=== PATIENT | female | born 1970 | race African-American/Black ===

== ENCOUNTER 2017-09-21 09:18 | Emergency (ER) | payer SELFPAY ==
[~2017-09-21] VITALS: Ht 162.6 cm; Wt 79.2 kg
[2017-09-21 09:26] VITALS: BP 129/89
--- NOTE | 2017-09-21 09:38 | NUR ---
PT AMBULATED TO [facility]
[2017-09-21 09:48] VITALS: BP 129/89
--- NOTE | 2017-09-21 09:51 | NUR ---
PT COMES TO ED C/O CP 12/12 WITH NAUSEA SINCE 8AM THIS MORNING. EKG COMPLETE AND SIGNED OFF BY MD DINH, PT DENEIS VOMITTING, SOB OR DIZZINESS. NAD NOTED/STATED OTHERWISE. PT PLACED ON PORTABLE MONIOTR, VS WNL. PT TO BE MOVED TO BED WHEN COMES AVAILABLE.
--- NOTE | 2017-09-21 10:35 | NUR ---
Xin nagy in [facility] - 09/21/17 at 1044 by [facility] Patient being evaluated by physician at bedside.
--- NOTE | 2017-09-21 10:40 | NUR ---
MD DINH AT BEDSIDE TO [facility]
[2017-09-21] MEDS ORDERED: NITROGLYCERIN 2% 1 GM PKT TP ONE (10:55)
[2017-09-21] MEDS ORDERED: fentaNYL 0.05 MG/ML VIAL IVP ONE (10:55)
[2017-09-21] MEDS ORDERED: NITROGLYCERIN 0.4 MG TAB SL ONE (10:55)
[2017-09-21] MEDS ORDERED: ONDANSETRON 4 MG/2 ML VIAL IVP ONE (10:55)
--- NOTE | 2017-09-21 11:29 | NUR ---
Pt moved to bed 2.
[2017-09-21] MEDS ORDERED: TOP100 PO (11:35)
[2017-09-21] MEDS ORDERED: FURO-572 PO (11:35)
[2017-09-21] MEDS ORDERED: GABA300C PO (11:35)
[2017-09-21] MEDS ORDERED: CITA20TA15 PO (11:35)
[2017-09-21] MEDS ORDERED: ZOLP5TAB1 PO (11:35)
[2017-09-21] MEDS ORDERED: RANEX500 PO (11:35)
[2017-09-21] MEDS ORDERED: TIZA2CAP PO (11:35)
[2017-09-21] MEDS ORDERED: CLOP300T1 PO (11:35)
[2017-09-21] MEDS ORDERED: ISOS20TA13 PO (11:35)
[2017-09-21] MEDS ORDERED: FINA5TAB1 PO ×2 (11:35)
[2017-09-21] MEDS ORDERED: SYN.05 PO (11:35)
[2017-09-21] MEDS ORDERED: CARV25TA PO (11:35)
[2017-09-21] MEDS ORDERED: VITD1000 PO (11:35)
[2017-09-21] MEDS ORDERED: NIFE10SG6 PO (11:35)
--- NOTE | 2017-09-21 11:47 | NUR ---
PT ON CELL PHONE IN BED, CONNECTED TO ALL MONITORS, VSS. PT REPORTS DECREASED CP AFTER BEING MEDICATED PER MD ORDER. LAB AT BEDSIDE FOR BLOOD DRAW
[2017-09-21 11:59] LABS: BASOPHILS % (AUTO) 0.7 % (0.0-2.0); EOSINOPHILS # (AUTO) 0.1 K/uL (0-0.4); EOSINOPHILS % (AUTO) 1.6 % (0.0-4.0); HEMATOCRIT 37.2 % (36-48); HEMOGLOBIN 12.1 g/dL (12.0-16.0); LYMPHOCYTES # (AUTO) 1.6 K/uL (2.5-16.5); LYMPHOCYTES % (AUTO) 31.6 % (20.5-51.1); MEAN CORPUSCULAR HEMOGLOBIN 32 pg (27-31); MEAN CORPUSCULAR HGB CONC 33 g/dL (33-37); MONOCYTES # (AUTO) 0.2 K/uL (0.8-1.0); MONOCYTES % (AUTO) 4.7 % (1.7-9.3); NEUTROPHILS # (AUTO) 3.1 K/uL (1.8-7.7); NEUTROPHILS % (AUTO) 61.4 % (42.2-75.2); PLATELET COUNT (AUTO) 263 K/uL (140-450); RED BLOOD CELL COUNT(AUTO) 3.76 MIL/uL (4.20-5.40); RED CELL DISTRIBUTION WIDTH 13.4 % (11.6-13.7); WHITE BLOOD COUNT (AUTO) 5.1 K/uL (4.8-10.8)
[2017-09-21 12:12] LABS: ANION GAP 14.1 (8-16); POTASSIUM 3.1 mmol/L (3.5-5.1)
--- NOTE | 2017-09-21 12:15 | NUR ---
PT REQUESTING PAIN MEDICATION BY NAME "THEY USUALLY GIVE ME DILAUDED, WHY IS THE DR NOT GIVING ME THAT?"
[2017-09-21 12:17] LABS: ALBUMIN 3.9 g/dL (3.4-5.0); PROTHROMBIN TIME 11.7 secs (10.8-13.4); TOTAL BILIRUBIN 0.5 mg/dL (0.0-1.0)
[2017-09-21] MEDS ORDERED: diphenhydrAMINE 50 MG/ML VIAL IVP ONE (12:25)
--- NOTE | 2017-09-21 12:50 | NUR ---
PT BECAME VERY UPSET WHEN UPDATED ON HER POC - BEING DC'D. PT STARTED TO TAKE OFF ALL MONITOR WIRES AND STARED TO GET DRESSED WITH CHAN TONE OF VOICE STATING "THIS HOSPITAL SUCKS." PT ASKED TO WAIT FOR DC PAPERS.
--- NOTE | 2017-09-21 12:59 | NUR ---
PATIENT ELOPED FROM FACILITY. DISCHARGE INSTRUCTIONS NOT GIVEN TO PATIENT. DR. DINH NOTIFIED.
== END 2017-09-21 12:59 | disposition left against medical advice (07) ==
LOC: MED 09:18
DX: R07.9 Chest pain, unspecified (principal); R06.02 Shortness of breath; E11.9 Type 2 diabetes mellitus without complications; M19.90 Unspecified osteoarthritis, unspecified site
CPT/HCPCS: 36415; 71045; 80053; 83880; 84484; 85025; 85610; 85730; 93005; 96374; 96375; 99285; J1200; J2405; J3010